=== PATIENT | male | born 2000 | race Two or more races ===

== ENCOUNTER 2025-04-10 10:16 | Emergency (ER) | payer OTHER ==
[~2025-04-10] VITALS: Ht 180.3 cm; Wt 99.8 kg
[2025-04-10] MEDS ORDERED: ONDANSETRON HCL 2 MG/ML VIAL IV STA (10:44)
[2025-04-10] MEDS ORDERED: FAMOTIDINE/PF 20 MG/2 ML VIAL IV PUSH STA (10:44)
[2025-04-10] MEDS ORDERED: 0.9 % SODIUM CHLORIDE 1,000 ML IV STA (10:58)
[2025-04-10 11:19] LABS: BASO % 0.3 % (0.1-1.2); EOS # 0.07 (0.04-0.54); EOS % 0.4 % (0.7-7.0); LYMPH # 0.44 (1.18-3.74); LYMPH % 2.5 % (19.3-53.1); MEAN PLATELET VOLUME 10.00 fl (9.4-12.4); MONO # 0.79 (0.24-0.82); MONO % 4.4 % (4.7-12.5); NEUT # 16.34 (1.56-6.13); NEUT % 92.0 % (34.0-71.1); RED CELL DISTRIBUTION WIDTH 12.3 % (11.6-14.4)
[2025-04-10 11:47] LABS: ALT/SGPT 25.0 U/L (12-78); AST/SGOT 10.0 U/L (15-37); BILIRUBIN TOTAL 0.55 mg/dL (0.3-1.2); BUN CREA RATIO 19.0 (7.0-25.0); CREATININE SERUM 0.96 mg/dL (0.70-1.30); GFR 95.44; GLOBULINA 3.1 G/DL (2.4-3.5); GLUCOSE FASTING 113.0 mg/dL (65-100); OSMOLALITY SERUM 286.0 MOSM/KG (275-295)
== END 2025-04-10 12:41 | disposition home or self-care (01) ==
LOC: ER 10:16
PROVIDERS: General Practice
DX: R11.10 Vomiting, unspecified (principal)